=== PATIENT | male | born 1985 | race African-American/Black ===

== ENCOUNTER 2021-06-26 10:54 | Emergency (ER) | payer MEDICAID ==
[~2021-06-26] VITALS: Ht 172.7 cm; Wt 93.0 kg
[2021-06-26 10:57] VITALS: BP 157/91
== END 2021-06-26 16:37 | disposition left against medical advice (07) ==
LOC: ER 10:54
DX: R10.9 Unspecified abdominal pain (principal); Z53.21 Procedure and treatment not carried out due to patient leaving prior to being seen by health care provider